=== PATIENT | female | born 1970 | race Caucasian/White ===

== ENCOUNTER 2020-05-27 10:45 | Emergency (ER) | payer OTHER, MEDICAID, SELFPAY ==
--- NOTE | ~2020-05-27 | CT_ITS ---
EXAMINATION: CT abdomen pelvis w con DATE: 05/27/2020 13:32 INDICATION: Upper abdominal pain, nausea and vomiting TECHNIQUE: Computed tomography (CT) of the abdomen and pelvis was performed with 100 mL Omnipaque-350 intravenous contrast. Automated exposure control and iterative reconstruction technique were employe d. The dose-length product was 283.87 mGy-cm. COMPARISON: 09/25/2016 FINDINGS: Lung bases are clear. Heart size is normal. No pericardial or pleural effusion. Postoperative changes of prior Paulette fundoplication with herniation of the wrap above the diaphragm. Liver, gallbladder, spleen, pancreas and bilateral adrenal glands are normal. Bilateral low-attenuation renal cysts, the largest on the left measuring 12 mm. There are scattered retained contrast material in the colon incl uding within the normal appendix and a few scattered diverticula without adjacent inflammatory change to suggest diverticulitis. No bowel obstruction. Bladder is normal. The uterus is not identified and has likely been surgically resected. No free intraperitoneal gas or fluid. No pathologically enlarge d abdominal or pelvic lymphadenopathy. Tiny fat-containing umbilical hernia. Mild thoracic and lumbar spondylosis. IMPRESSION: 1. Paulette fund location with herniation of the wrap above the diaphragm. 2. Mild scattered diverticulosis. Reviewed, dictated and finalized at location A.
[2020-05-27 10:54] VITALS: BP 125/74; PULSE 64; RESP 20; TEMP 36.2; O2SAT 100
[2020-05-27] MEDS: SODIUM CHLORIDE 0.9% IV 1,000 ML 999 ML IV CONT ×2 (11:50→14:50)
--- NOTE | 2020-05-27 11:50 | ED.ABDPAIN ---
HPI - Abdominal Pain General Chief Complaint: Abdominal Pain Stated Complaint: Vomiting Time Seen by Provider: 05/27/20 11:14 Source: patient Mode of arrival: wheelchair Limitations: no limitations History of Present Illness HPI narrative: This is a 50-year-old female that presents the emergency department for upper abdominal pain x4 days. Associated with nausea and vomiting. Worse when she eats. Reports she is being evaluated by a surgeon for recurrent nausea and vomiting and recently had a hernia repair. Reports she had an ultrasound yesterday, is unsure of the results. Reports chronic diarrhea. Denies fevers, dysuria or hematuria. Related Data Home Medications Medication Instructions Recorded Confirmed adalimumab [Humira(CF) Pen] mg SUBCUT 05/27/20 05/27/20 Allergies Allergy/AdvReac Type Severity Reaction Status Date / Time No Known Allergies Allergy Verified 05/27/20 11:11 Review of Systems Review of Systems: Narrative: CONSTITUTIONAL: Denies fever CARDIOVASCULAR: Denies chest pain RESPIRATORY: Denies dyspnea. GASTROINTESTINAL: Reports abdominal pain, nausea, vomiting, and diarrhea. GENITOURINARY: Denies dysuria or hematuria. All systems reviewed & are unremarkable except as noted in HPI and below PMFSH Past Medical History Medical History (Updated 05/27/20 @ 16:00 by Sara Lucio PA-C) History of gastroesophageal reflux (GERD) Surgical History Surgical History (Updated 05/27/20 @ 11:56 by Sara Lucio PA-C) History of repair of hiatal hernia Family History Family History (Updated 06/21/16 @ 23:21 by DOCTOR UNKNOWN) Sibling Patient's brother is in good health Mother Family history of colonic diverticulitis Social History Social History (Updated 05/27/20 @ 11:55 by Sara Lucio PA-C) Smoking status: Never smoker Second hand tobacco smoke exposure: Yes Substance use type: marijuana Gender identity (if verbalized by the patient): Female Exam Narrative: Exam Narrative: GENERAL: Well-appearing, well-nourished, and in mild acute distress due to pain. HEAD: Normocephalic, atraumatic. EYES: EOMI. CHEST: Clear to auscultation. No respiratory distress. No wheezes rales or rhonchi HEART: Regular rate and rhythm. No murmur heard. Normal peripheral pulses. ABDOMEN: Soft, nondistended, normal active bowel sounds. Tender to palpation of the epigastrium and right upper quadrant, without guarding EXTREMITIES: Normal range of motion. No edema. SKIN: Warm, dry, no rash. NEURO: No focal deficits. Alert and oriented x3. PSYCH: Normal mood and affect Course Vital Signs Vital signs: Vital Signs Temperature 97.1 F L 05/27/20 10:54 Pulse Rate 64 05/27/20 10:54 Respiratory Rate 05/27/20 10:54 Blood Pressure 125/74 05/27/20 10:54 Pulse Oximetry 100 05/27/20 10:54 Temperature 97.1 F L 05/27/20 10:54 Pulse Rate 64 05/27/20 10:54 Respiratory Rate 05/27/20 10:54 Blood Pressure 125/74 05/27/20 10:54 Pulse Oximetry 100 05/27/20 10:54 MDM - Abdominal Pain MDM Narrative Medical decision making narrative: Patient presents the emergency department for nausea and vomiting x4 days. Reports she has been having recurrent episodes of nausea and vomiting for the last couple of months. She is currently seeing a surgeon at another facility for this. Vitals are stable. Patient is afebrile and nontoxic-appearing. CBC with mild leukocytosis to 11.8. Also shows hemoconcentration. Patient hydrated in the ED. Metabolic panel with hypokalemia. Patient given a dose of potassium in the ED. UA with 4-6 white blood cells, but moderate squamous epithelial cells. Patient does not have any urinary complaints. 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 Patient hydrated and given antiemetics in the ED and able to tolerate p.o. challenge. Patient is stable and felt appropriate for further outpati
[2020-05-27] MEDS: ONDANSETRON INJ 4 MG/2 ML VIAL IV PUSH (11:51)
[2020-05-27] MEDS: MORPHINE SULFATE 4 MG/ML INJ IV PUSH (11:52)
[2020-05-27 11:58] LABS: Basophils Absolute Auto 0.1 K/mm3 (0.0-0.1); Basophils Percent Auto 0.4 % (0.2-1.2); Eosinophils Percent Auto 0.3 % (0-4.4); Hematocrit 50.7 % (37.0-47.0); Hemoglobin 17.5 g/dL (12.0-15.0); Immature Granulocyte Absolute 0.04 K/mm3 (0.00-0.031); Immature Granulocyte Percent A 0.3 % (0-0.5); Lymphocytes Absolute Auto 2.25 K/mm3 (0.9-3.2); Lymphocytes Percent Auto 19.1 % (18.3-44.2); Mean Corpuscular HGB Conc 34.5 g/dl (32-36); Mean Corpuscular Hemoglobin 31.1 pg (26-34); Mean Corpuscular Volume 90.2 fl (80-100); Mean Platelet Volume 10.7 fl (7.4-10.4); Monocytes Absolute Auto 0.9 K/mm3 (0.1-0.6); Monocytes Percent Auto 7.2 % (2.6-8.5); Neutrophils Absolute Auto 8.5 K/mm3 (1.3-6.7); Neutrophils Percent Auto 72.7 % (45.5-73.1); Platelet Count Result 313 k/mm3 (150-375); Red Blood Count 5.62 M/mm3 (4.2-5.4); Red Cell Distribution Width 13.7 % (11.5-14.5); White Blood Count 11.8 K/mm3 (4.5-10.0)
[2020-05-27 12:11] LABS: Alanine Aminotransferase 21 U/L (4-35); Albumin Level 4.9 g/dL (3.5-5.1); Alkaline Phosphatase 105 U/L (38-126); Aspartate Amino Transferase 25 U/L (14-36); Bilirubin,Total 0.8 mg/dL (0.2-1.3); Blood Urea Nitrogen 15 mg/dL (7-17); Calcium 9.8 mg/dL (8.4-10.2); Carbon Dioxide 20 mmol/L (22-30); Chloride 104 mmol/L (98-107); Estimated CRCL calculation 65 ml/min; Estimated Glomerular Filt Rate > 60; Glucose 108 mg/dL (65-105); Lipase 118 U/L (23-300); Sodium 138 mmol/L (137-145)
[2020-05-27 12:46] LABS: Add Urine Microscopic? YES; Appearance Urine Clear (Clear); Bilirubin Urine Negative (Negative); Blood Urine 1+ (Negative); Color Urine Yellow (Yellow); Glucose Urine UA Negative (Negative); Ketones Urine 2+ mg/dL (Negative); Leukocyte Esterase Ur Negative LEU/UL (Negative); Nitrate Urine Negative (Negative); Protein Urine 1+ mg/dL (Negative); Urobilinogen Urine Negative mg/dL (<2.0)
[2020-05-27 12:49] LABS: Specific Grav Ur 1.035 (1.001-1.035); Squamous Epithelial Cell Urine Moderate /hpf (Few)
[2020-05-27 13:00] VITALS: BP 140/64; PULSE 60; RESP 16; O2SAT 98
[2020-05-27] MEDS: PROCHLORPERAZINE EDISYLATE 10 MG/2 ML VIAL IV PUSH (13:50)
[2020-05-27 15:10] VITALS: BP 138/82; PULSE 70; RESP 16; O2SAT 97
[2020-05-27] MEDS: KETOROLAC 30 MG/ML VIAL (*BKC) IV PUSH (15:25)
[2020-05-27] MEDS: POTASSIUM CHLORIDE 20 MEQ TABLET 40 MEQ PO (15:27)
[2020-05-27 16:15] VITALS: BP 135/79; PULSE 72; RESP 16; O2SAT 97
[2020-05-27 17:15] VITALS: BP 102/59; PULSE 70; RESP 16; O2SAT 95
== END 2020-05-27 17:15 | disposition home or self-care (01) ==
PROVIDERS: Emergency Provider Emergency Medicine
DX: R11.2 Nausea with vomiting, unspecified (principal); K21.9 Gastro-esophageal reflux disease without esophagitis; K57.90 Diverticulosis of intestine, part unspecified, without perforation or abscess without bleeding
CPT/HCPCS: 36415; 74177; 80053; 81001; 81025; 83690; 85025; 96361; 96365; 96375; 99284; A9270; J0131; J0780; J1885; J2060; J2270; J2405; J7030; Q9967